=== PATIENT | female | born 1995 | race Hispanic/Latino ===

== ENCOUNTER 2021-05-10 22:40 | Inpatient (IN) | payer OTHER ==
[~2021-05-10] VITALS: Ht 162.6 cm; Wt 70.1 kg
[2021-05-11 01:07] LABS: HEMATOCRIT 42.4 % (36.0-47.0); HEMOGLOBIN 13.8 g/dl (12.0-15.5); MEAN CORPUSCULAR HEMOGLOBIN 29.3 pg (27.0-33.0); MEAN CORPUSCULAR HGB CONC 32.5 g/dl (32.0-36.5); PLATELET COUNT, AUTOMATED 196 10^3/uL (150-450); RED BLOOD COUNT 4.71 10^6/uL (4.00-5.40); WHITE BLOOD COUNT 8.6 10^3/uL (4.0-10.0)
[2021-05-11 01:26] LABS: AMPHETAMINES LEVEL URINE NEGATIVE (NEGATIVE); BARBITURATES URINE NEGATIVE (NEGATIVE); BENZODIAZEPINES URINE NEGATIVE (NEGATIVE); CANNABINOIDS URINE NEGATIVE (NEGATIVE); COCAINE METABOLITE URINE NEGATIVE (NEGATIVE); METHADONE URINE NEGATIVE (NEGATIVE); OPIATES URINE NEGATIVE (NEGATIVE); PHENCYCLIDINE URINE NEGATIVE (NEGATIVE)
[2021-05-11 01:45] LABS: ACETAMINOPHEN LEVEL < 2.0 UG/ML (10.0-30.0); ALBUMIN 4.2 GM/DL (3.2-5.2); ALT/SGPT 24 U/L (12-78); BILIRUBIN,DIRECT 0.3 MG/DL (0.0-0.2); BILIRUBIN,TOTAL 1.2 MG/DL (0.2-1.0); BLOOD UREA NITROGEN 11 MG/DL (7-18); CALCIUM LEVEL 9.3 MG/DL (8.5-10.1); CARBON DIOXIDE LEVEL 24 MEQ/L (21-32); CHLORIDE LEVEL 106 MEQ/L (98-107); CREATININE FOR GFR 0.78 MG/DL (0.55-1.30); ETHYL ALCOHOL (ETHANOL) < 0.003 % (0.000-0.010); GLOMERULAR FILTRATION RATE > 60.0 (>60); GLUCOSE, FASTING 95 MG/DL (70-100); POTASSIUM SERUM 3.8 MEQ/L (3.5-5.1); SALICYLATE LEVEL < 1.7 MG/DL (5.0-30.0); SODIUM LEVEL 140 MEQ/L (136-145); TOTAL PROTEIN 8.2 GM/DL (6.4-8.2)
[2021-05-11 01:46] LABS: HCG, SERUM QUALITATIVE NEGATIVE (NEGATIVE)
[2021-05-11 01:56] LABS: RSV AMPLIFICATION NEGATIVE (NEGATIVE)
[2021-05-11] MEDS ORDERED: HOME MED LIST COMPLETE! XX SCH (02:15)
[2021-05-11] MEDS ORDERED: MOM 30ML SUSPENSION UDC PO PRN (02:20)
[2021-05-11] MEDS ORDERED: ACETAMINOPHEN TAB 650MG DOSE (2X325MG) PO PRN (02:20)
[2021-05-11] MEDS ORDERED: traZODone 50 MG TAB PO PRN (02:20)
[2021-05-11] MEDS ORDERED: MAALOX 30 ML SUSP *UDC PO PRN (02:20)
[2021-05-11] MEDS ORDERED: LORazepam 1 MG TAB PO PRN (02:20)
[2021-05-11 03:01] VITALS: BP 117/72
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
[2021-05-11 19:18] VITALS: BP 118/75
[2021-05-12 06:45] VITALS: BP 121/63
--- NOTE | 2021-05-12 16:13 | HPEPDOC ---
[facility] Medical History & Physical Date of Admission May 11, 2021 Date of Service: May 12, 2021 History and Physical Chief complaint: Presented to the ER with suicidal ideation History of present illness: Patient is 25-year-old female with no significant past medical history presented to the hospital after reporting suicidal ideation. Patient admitted to the inpatient mental health unit under the care of psychiatry. Hospitalist service was consulted for medical screening evaluation. Patient was seen and examined in the exam room. Patient reports a mild headache that shes experienced chronically report some nausea without vomiting. Denies any chest pain, shortness of breath or palpitations. Has not experience any abdominal discomfort, diarrhea, constipation, or urinary discomfort. Patient denies any recent fevers or chills. Patient reports her weight or appetite are fairly consistent. 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 Review of Systems: 10 point review of systems complete, all negative otherwise stated in HPI Physical exam: - Vitals: BP [121/63], HR [53], RR [16], Sat [100%RA], Temp [97.5F] - General: Sitting up in chair, Speaking in full sentences, AAOx3 - HEENT: NC, AT, PERRLA - CVS: RRR, +S1S2 - Lungs: Fair air entry bilaterally, No appreciable wheezing / rales / rhonchi - Abdomen: Soft, Non-distended, Non-tender - Extremities: No lower extremity edema, No calf tenderness - Neuro: No focal motor or sensory deficit - Skin: No visible rashes Labs: See below Imaging: See below EKG: See below Assessment and Plan: Suicidal ideation - Patient has been admitted to inpatient health unit under the care of psychiatry - Currently being managed by psychiatry Hx of Concussion - Reported 7 weeks ago DVT prophylaxis - Will c/w early ambulation Female sex offender treatment professional was present at the duration of this history and physical examination Thank you for this consultation. Hospitalist service will sign off; please reconsult as needed. Vital Signs Vital Signs Date Time Temp Pulse Resp B/P (MAP) Pulse Ox O2 Delivery O2 Flow Rate FiO2 05/12/21 06:45 97.5 53 16 121/63 (82) 100 Room Air Home Medications No Active Prescriptions or Reported Meds Allergies Coded Allergies: No Known Allergies (Unverified , 05/10/21) CODI PARKER MD May 12, 2021 16:13
[2021-05-12 18:41] VITALS: BP 120/58
[2021-05-13 06:47] VITALS: BP 112/61
--- NOTE | 2021-05-13 11:06 | MHIPN ---
[facility] PROGRESS NOTE DATE: 05/12/2021 SUBJECTIVE: The patient states that she is feeling better today. She says that the fact that she got some sleep is helping her feel better and she is not having any suicidal thoughts or any thoughts of harming herself today. MENTAL STATUS EXAMINATION: She is alert. She is oriented, verbally spontaneous. She is not suicidal or homicidal. Concentration and memory is good. Insight and judgment is fair. DIAGNOSES: 1. Unspecified trauma and stress-related disorder. 2. Unspecified depressive disorder secondary to traumatic brain injury. 3. Generalized anxiety disorder with panic attacks. TREATMENT PLAN: At this point, we will continue to monitor the patient. We will continue stabilization of her mood and continued resolution of suicidal ideation.
[2021-05-13 18:22] VITALS: BP 120/65
--- NOTE | 2021-05-14 06:02 | MHIPN ---
[facility] PROGRESS NOTE DATE: 05/13/2021 SUBJECTIVE: The patient today states "I am doing better." She says that she is eating well and her sleep is better now. She does not feel depressed. She says she is having some weird dreams but not nightmares. Patient has not been treated with any psychotropic medications. These cannot be side-effects from medication. MENTAL STATUS EXAM: The patient is alert and oriented x3. She is pleasant and cooperative, verbally spontaneous. Eye contact is good. There is no formal thought disorder noted. Mood is "better." Affect is full range and appropriate. She is not psychotic, suicidal or homicidal. Concentration and memory are good. Insight and judgment are fair. DIAGNOSIS: 1. Unspecified trauma and stressor related disorder. 2. Other specified depressive disorder. 3. Generalized anxiety disorder with panic attacks. TREATMENT PLAN: At this point, we will continue to monitor the patient for continued observation and stabilization of her mood and continued resolution of suicidal ideation.
[2021-05-14 06:41] VITALS: BP 111/60
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
== END 2021-05-14 13:30 | disposition home or self-care (01) | DRG 882 ==
LOC: M ED 22:40 → M PSY 05-11 02:20
PROVIDERS: ADMIT Psychiatry & Neurology Psychiatry; ATTEND Psychiatry & Neurology Psychiatry
DX: F43.11 Post-traumatic stress disorder, acute (principal); R45.851 Suicidal ideations; F41.1 Generalized anxiety disorder

== ENCOUNTER 2021-05-22 22:54 | Inpatient (IN) | payer OTHER ==
--- OUTSIDE RECORDS SUMMARY | 2021-05-22 22:58 | CCD ---
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 abrasion, 2 Clinical Report - Physicians/Mid Levels [facility] Emergency Department [address] [place] [address] Phone #: ext- [phone] 03/23/2021 08:37 Patient: MONTSERRAT VIERA [facility]#: [id number] Sex: F : 1995 Age: 25y ecchymosis, puncture wound or foreign body. No deformity. Left gnosticism: mild tenderness of the anterior aspect of the left gnosticism. No erythema, swelling, laceration, abrasion or ecchymosis. No puncture wound, foreign body or deformity. Eyes: Pupils equal, round and reactive to light. EOM intact. ENT: No dental injury. Pharynx normal. Neck: Neck non-tender. Painless ROM. CVS: Heart sounds normal. Pulses normal. Respiratory: Painless inspiration. Breath sounds normal. Chest nontender. Abdomen: Soft and nontender. No organomegaly. Back: No tenderness. ROM normal. Skin: Skin intact. Skin warm and dry. Normal skin color. Extremities: Normal inspection. Pelvis stable. Extremities atraumatic. No lower extremity edema. Neuro: Oriented X 3. Mood/affect normal. Speech normal. No motor deficit. Abnormal gait. No sensory deficit. Reflexes normal.LABS, X-RAYS, AND EKGCT Head: Normal study. (.). Prior studies were not available for comparison. The study was interpretedby the radiologist. Interpretation time: 11:12 03/23/2021.PROGRESS AND PROCEDURESCourse of Care: 11:24 03/23/21. 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 she has a few second LOC and has been dizzy and nauseated in theER, given zofran in the ER. CT scan of the head was negative for bleed or fracture. she was advisedfollow up with MOD and to follow concussion protocol. she was prescribed zofran for nausea. Patient counseled in person regarding the patient's stable condition and need for follow-up. Patient agrees with plan of care. 11:20. Disposition: Discharged in good and improved condition (11:21). Condition: good and stable. Discharge decision based on the following: patient's condition is stable; patient's exam is stable; minimally abnormal test results; stable condition on repeat evaluation; social support is adequate; transportation is available; follow-up is available; clinical impression is consistent with outpatient treatment.CLINICAL IMPRESSION Concussion. Loss of consciousness for a few seconds.INSTRUCTIONS Do not work for seven days. (we did a CT scan o f the head which was negative for bleed or fracture. you may have a mild concussion. you should follow up with your medical command and should have graduated activity for 1 3 Clinical Report - Physicians/Mid Levels [facility] Emergency Department [address] [place] [address] Phone #: ext- [phone] 03/23/2021 08:37 Patient: MONTSERRAT VIERA Sex: F : 1995 Age: 25y week). Your Current Medications: . No home medication. Prescription Medications: ondansetron 4 mg disintegrating tablet Take 1 tablet three times a day as needed for 5 days -- for nausea and vomiting. Dispense 15 tablet. Refills: 0. Substitution permitted. Pharmacy - [facility] [id number] ; [place] [address]. FaxNumber: . Follow-up: Follow up with your healthcare provider unit provider and follow concussion protocol today. Summary of care provided to patient via paper.(Electronically signed by Neha Damian 03/24/2021 01:52) Name Value Range Interpretation Code Description Data Rocio rce(s) Supporting Document(s) ID Date Data Source [id number] 02/12/2021 09:46:00 AM EDT [facility] Name Value Range Interpretation Code Description Data Rocio rce(s) Supporting Document(s) SARS coronavirus 2 RNA Not Detected [facility] This lab was ordered by [facility] and reported by [facility]. Procedure Social History No Information
[2021-05-22 23:51] LABS: AMPHETAMINES LEVEL URINE NEGATIVE (NEGATIVE); BARBITURATES URINE NEGATIVE (NEGATIVE); BENZODIAZEPINES URINE NEGATIVE (NEGATIVE); CANNABINOIDS URINE NEGATIVE (NEGATIVE); COCAINE METABOLITE URINE NEGATIVE (NEGATIVE); METHADONE URINE NEGATIVE (NEGATIVE); OPIATES URINE NEGATIVE (NEGATIVE); PHENCYCLIDINE URINE NEGATIVE (NEGATIVE)
[2021-05-22 23:59] LABS: HEMATOCRIT 40.4 % (36.0-47.0); HEMOGLOBIN 13.5 g/dl (12.0-15.5); MEAN CORPUSCULAR HEMOGLOBIN 29.8 pg (27.0-33.0); MEAN CORPUSCULAR HGB CONC 33.4 g/dl (32.0-36.5); MEAN CORPUSCULAR VOLUME 89.2 fl (80.0-96.0); PLATELET COUNT, AUTOMATED 207 10^3/uL (150-450); RED BLOOD COUNT 4.53 10^6/uL (4.00-5.40); WHITE BLOOD COUNT 9.7 10^3/uL (4.0-10.0)
[2021-05-23 00:16] LABS: HCG, SERUM QUALITATIVE NEGATIVE (NEGATIVE)
[2021-05-23 00:24] LABS: ACETAMINOPHEN LEVEL < 2.0 UG/ML (10.0-30.0); ALBUMIN 3.9 GM/DL (3.2-5.2); ALT/SGPT 21 U/L (12-78); BILIRUBIN,DIRECT 0.2 MG/DL (0.0-0.2); BILIRUBIN,TOTAL 1.2 MG/DL (0.2-1.0); BLOOD UREA NITROGEN 9 MG/DL (7-18); CALCIUM LEVEL 8.9 MG/DL (8.5-10.1); CARBON DIOXIDE LEVEL 26 MEQ/L (21-32); CHLORIDE LEVEL 109 MEQ/L (98-107); CREATININE FOR GFR 0.69 MG/DL (0.55-1.30); ETHYL ALCOHOL (ETHANOL) < 0.003 % (0.000-0.010); GLOMERULAR FILTRATION RATE > 60.0 (>60); GLUCOSE, FASTING 93 MG/DL (70-100); POTASSIUM SERUM 4.2 MEQ/L (3.5-5.1); SALICYLATE LEVEL < 1.7 MG/DL (5.0-30.0); SODIUM LEVEL 140 MEQ/L (136-145); THYROID STIMULATING HORMONE 0.892 uIU/ML (0.358-3.740); TOTAL PROTEIN 7.9 GM/DL (6.4-8.2)
--- OUTSIDE RECORDS SUMMARY | 2021-05-23 01:13 | CCD ---
Author Author [facility] Organization [facility] Address Unknown Phone Unavailable Care Team Providers Care Platform Material Handler Manager Name Role Phone UNKNOWN, CLINIC OKSANA Unavailable Unavailable TURRIN, RAJIV Unavailable Unavailable TURRIN, RAJIV Unavailable Unavailable TURRIN, RAJIV Unavailable Unavailable TURRIN, [...] is protected by Article 27-F of the [place] State Public Health law. If you continue you may have access to information: Regarding HIV / AIDS; Provided by facilities licensed or operated by the [facility] Office of Mental Health; or Provided by the [facility] Office for People With Developmental Disabilities. If such information is present, then the following [facility] mandated warning applies: This information has been [...] law may result in a fine or mcc sentence or both. A general authorization for the release of medical or other information is NOT sufficient authorization for further disc losure. Encounters Encounter Providers Location Date Indications Data Source(s ) Emergency Attender: RAJIV WINNConsultant: OKSANA UNKN OWN 04/09/2021 10:09:00 AM EDT - 04/09/2021 11:03:00 AM EDT [facility] Patient discharged. Emergency Attender: NEHA DAMIAN MDConsultant: ILA OR UNKNOWN 03/23/2021 08:38:00 AM EDT - 03/23/2021 11:29:00 AM T [facility] Patient discharged. Medications No Information Insurance Providers Payer name Policy type / Coverage type Policy ID Covered republican ID Covered republican's relationship to pascal Policy Pascal Plan Information [facility] [employer]UTY [id number] SP [id number] [facility] HUMANA - O/P [id number] 18 [id number] Problems, Conditions, and Diagnoses Code Display Name Description Problem Type Effective Dates Data Source(s) Y9289 Other specified places as the place of o ccurrence of the external cause Other specified places as the place of occurrence of the external cause Diagnosis 04/09/2021 10:09:00 AM [facility] [id number] Striking against other stationary object , initial encounter Striking against other stationary object, initial encounter Diagnosis 10/2020 10:09:00 AM [facility] F0781 Postconcussional syndrome Postconcussional syndrome Di agnosis 04/09/2021 10:09:00 AM [facility] [id number] Concussion with loss of cons ciousness of unspecified duration, initial encounter Concussion with loss of consciousness of unspecified duration, initial encounter Diagnosis 04/09/2021 10:09:00 AM EDT [facility] [id number] Unspecified injury of head, initial enco unter Unspecified injury of head, initial encounter Diagnosis 04/09/2021 10:09:00 AM EDT [facility] [id number] Fall on same level from slip ping, tripping and stumbling with subsequent striking against other object, initial encounter Fall on same level from slipping, tripping and stumbling with subsequent striking against other object, initial encounter Diagnosis 03/23/2021 08:38:00 AM EDT [facility] [id number] Concussion with loss of cons ciousness of 30 minutes or less, initial encounter Concussion with loss of consciousness of 30 minutes or less, initial encounter Diagnosis 03/23/2021 08:38:00 AM EDT [facility] Surgeries/Procedures No Information Results ID Date Data Source [id number] 05/11/2021 12:38:00 AM EDT [facility] Name Value Range Interpretation Code Description Data Rocio rce(s) Supporting Document(s) SARS coronavirus 2 RNA [Presence] in Res piratory specimen by ARCHIE with probe detection [facility] was ordered by [facility] a nd reported by [facility]. ID Date Data Source [id number] 04/30/2021 09:37:00 AM EDT [facility] Name Value Range Interpretation Code Description Data Rocio rce(s) Supporting Document(s) SARS coronavirus 2 RNA Not Detected [facility] This lab was ordered by [facility] and reported by [facility]. ID Date Data Source [id number] 04/09/2021 10:09:00 AM EDT [facility] 1 OrderSheet [facility] Emergency Department [address] [place] [address] Phone #: ext- [phone] 04/09/2021 10:05 Patient: MONTSERRAT VIERA Sex: F [...] rce(s) Supporting Document(s) ID Date Data Source [id number] 04/09/2021 10:09:00 AM EDT [facility] 1 Medication Reconciliation Report [facility] Emergency Department [address] [place] [address] Phone #: ext- [phone] 04/09/2021 10:05 Patient: [...] rce(s) Supporting Document(s) ID Date Data Source [id number] 04/09/2021 10:09:00 AM EDT [facility] 1 Medication Administration Record [facility] Emergency Department [address] [place] [address] Phone #: ext- [phone] 04/09/2021 10:05 Patient: [...] rce(s) Supporting Document(s) ID Date Data Source [id number] 04/09/2021 10:09:00 AM EDT [facility] 1 General Instructions [facility] Emergency Department [address] [place] [address] Phone #: ext- [phone] 04/09/2021 10:05 Patient: [...] medication.Follow-up:Follow up with doctor [facility] Clinic at [facility] as scheduled. Reason for referral: evaluation and treatment.Summary of care provided to patient.Understanding of the discharge instructions verbalized by patient. ADDITIONAL INFORMATIONConcussion 2 General Instructions [facility] Emergency Department [address] [place] [address] Phone #: ext- [phone] 04/09/2021 10:05 Patient: [...] bag that seals at 3 General Instructions [facility] Emergency Department [address] [place] [address] Phone #: ext- [phone] 04/09/2021 10:05 Patient: [...] worse Loss of consciousness 4 General Instructions [facility] Emergency Department [address] [place] [address] Phone #: ext- [phone] 04/09/2021 10:05 [id number] Sex: F : 1995 Age: 25y Unusual [...] or bleeding from the nose or ears [id number] [employer]. [address] [place] [address]. All rights reserved. This information is not [...] things. This is normal. 5 General Instructions [facility] Emergency Department [address] [place] [address] Phone #: ext- [phone] 04/09/2021 10:05 Patient: [facility]ER[facility] [id number] Sex: F : 1995 Age: 25y Symptoms [...] week, or as directed. 6 General Instructions [facility] Emergency Department [address] [place] [address] Phone #: ext- [phone] 04/09/2021 10:05 Patient: [facility]ERRAT [facility]ER[facility] [id number] Sex: F : 1995 Age: 25yA radiologist [...] bleeding from the nose or ears [employer]. [address] [place], [place] [address]. All rights reserved. This information is not intended as asubstitute for professional medical care. Always follow your healthcare professional's instructions. You have been given the following additional information: Concussion Concussion No strenuous activity until relea sed (until evaluated at the TBI Clinic). 7 General Instructions [facility] Emergency Department [address] [place] [address] Phone #: ext- [phone] 04/09/2021 10:05 Patient: MONTSERRAT VIERA Sex: F : 1995 Age: 25y(Electronically signed by SAMIA Avelar 04/09/2021 21:30) Name Value Range Interpretation Code Description Data Rocio rce(s) Supporting Document(s) ID Date Data Source [id number] 04/09/2021 10:09:00 AM EDT [facility] 1 Clinical Report - Nurses [facility] Emergency Department [address] [place] [address] Phone #: ext- [phone] 04/09/2021 10:05 Patient: [...] INJURY.Alert. No acute distress.Location of injuries: left quaker and left parietal area. ( injury 3 weeks ago). She has had a headache(left side).Treatment BOND WRITER:None.SEPSIS SCREEN: SIRS SCREEN NEGATIVE. SEPSIS SCREEN NEGATIVE. [...] to Coronavirus. 2 Clinical Report - Nurses [facility] Emergency Department [address] [place] [address] Phone #: ext- [phone] 04/09/2021 10:05 Patient: MONTSERRAT VIERA [facility]#: [id number] Sex: F : 1995 Age: 25y (vaccinated [...] reaction and 3 Clinical Report - Nurses [facility] Emergency Department [address] [place] [address] Phone #: ext- [phone] 04/09/2021 10:05 Patient: MONTSERRAT VIERA Sex: F : 1995 Age: 25y precautions. Verbalizes understanding. --10:51 04/09/21 Keisha Barnett R.N.DISPOSITION / DISCHARGE 10:55 04/09/21. BP: 131/78. HR: 63. RR: 17. O2 saturation: 100%. Temp: 98.7 F. Pain level now 2/10. --10:56 04/09/21 [facility] Tech, Alf, Tech1 Condition at departure: improved. No learning barriers pr esent. Work note given. Patient verbalized understanding. Written instructions provided in Bermudian. The patient was discharged home and unaccompanied at time of discharge. She left ambulatory and via private vehicle. Patient driving. --11:03 04/09/21 Keisha Barnett R.N. Departure time: 11:03 04/09/2021. --11:03 04/09/21 Keisha Barnett R.N.Locked/Released at 04/09/2021 11:03 by Keisha Barnett R.N. Name Value Range Interpretation Code Description Data Rocio e(s) Supporting Document(s) ID Date Data Source [id number] 04/09/2021 10:09:00 AM EDT [facility] 1 Clinical Report - Physicians/Mid Levels [facility] Emergency Department [address] [place] [address] Phone #: ext- [phone] 04/09/2021 10:05 Patient: [...] re-scheduled her 2 Clinical Report - Physicians/Mid [facility] Emergency Department [address] [place] [address] Phone #: ext- [phone] 04/09/2021 10:05 Patient: MONTSERRAT VIERA Sex: F : 1995 Age: 25y appointment, she cam here instead. Pt needs to follow up at [facility]). Patient counseled in person regarding the patient's [...] Follow up with doctor TBI Clinic at [facility] as scheduled. Reason for referral: evaluation and treatment. Summary of care provided to patient. Understanding of the discharge instructions verbalized by patient.(Electronically signed by SAMIA Avelar 04/09/2021 21:30) Name Value Range Interpretation Code Description Data Rocio rce(s) Supporting Document(s) ID Date Data Source [id number] 03/24/2021 10:58:00 PM EDT [facility] [address] [place] [address] PHONE: [phone] FAX: [phone] Name .................. : MAXIMILIANO MARIANO Acct Number.................. : [id number] ROOM. ................. : TR-08 MR Number ................... : [id number] Stay type ............. : E/R Discharge Date......... ... : 03/23/21 Admit Date ......... : 03/23/21 [facility].... [facility] Date of ....... : 1995 Family Phys ................... : UNKNOWN CO Phone .................. : [phone] Age ................................ : 25 Film# .................. .:[id number] Sex ................................. : F Unsigned transcriptions are preliminary reports and do not represent a medical or legal document CT HEAD W/O CONTRAST [id number] COMPLETE:03/23/21 11:44 [facility] [id number] Reason(s): ead injury with LOC CT BRAIN [...] MD , 03/24/21 22:58, SCB Transcribe Initials: [facility], Transcribe Date: 03/23/21 12:08, Dictation Date: Page 1 of 2 [place] [address] PHONE: [phone] FAX: [phone] Name .................. : MAXIMILIANO MARIANO Acct Number.................. : [id number] ROOM. ................. : TR-08 MR Number ................... : [id number] Stay type ............. : E/R Discharge Date......... ... : 03/23/21 Admit Date ......... : 03/23/21 Admit Phys .................... : YAHIR Date of ....... : 1995 Family Phys ................... : UNKNOWN CO Phone .................. : [phone] Age ................................ : 25 Film# .................. .:[id number] Sex ................................. : F Unsigned transcriptions are preliminary reports and do not represent a medical or legal document CT HEAD W/O CONTRAST [id number] COMPLETE:03/23/21 11:44 [facility] [address] Reason(s): ead injury with LOC Copy for: EMERGENCY DEPT via modem Copy for: 710 MED REC DISCHARGED Page 2 of 2 Name Value Range Interpretation Code Description Data Rocio rce(s) Supporting Document(s) ID Date Data Source [id number] 03/23/2021 08:38:00 AM EDT [facility] 1 OrderSheet [facility] Emergency Department [address] [place] [address] Phone #: iso- [phone] 03/23/2021 08:37 Patient: MONTSERRAT VIERA Sex: F [...] Priority Entered Acknowledged Initialed[Electronically signed by Antoinette Prakinson RN (11:32 03/23/2021)][Electronically signed by Neha Damian (01:52 03/24/2021)][Electronically locked by Antoinette Parkinson RN (11:32 03/23/2021)] Name Value Range Interpretation Code Description Data Rocio rce(s) Supporting Document(s) ID Date Data Source [id number] 03/23/2021 08:38:00 AM EDT [facility] 1 Medication Reconciliation Report [facility] Emergency Department [address] [place] [address] Phone #: ext- [phone] 03/23/2021 08:37 Patient: [...] 15 tablet. Refills: 0. Substitution permitted.Pharmacy - [facility] - [address] [facility] ; [place] [address]. . -- Neha Damian Name Value Range Interpretation Code Description Data Rocio e(s) Supporting Document(s) ID Date Data Source [id number] 03/23/2021 08:38:00 AM EDT [place] [address] Medication Administration Record [facility] Emergency Department [address] [place] [address] Phone #: ext- [phone] 03/23/2021 08:37 Patient: MONTSERRAT VIERA Sex: F [...] e(s) Supporting Document(s) ID Date Data Source [id number] 03/23/2021 08:38:00 AM EDT [place] [address] General Instructions [facility] Emergency Department [address] [place] [address] Phone #: ext [phone] 03/23/2021 08:37 Patient: MONTSERRAT VIERA Sex: F [...] 15 tablet. Refills: 0. Substitution permitted.Pharmacy - [address] ; [place] [address]. .Follow-up:Follow up with your healthcare provider unit provider and follow concussion protocol today. Summary ofcare provided to patient via paper. ADDITIONAL INFORMATIONConcussion 2 General Instructions [facility] Emergency Department [address] [place] [address] Phone #: ext- [phone] 03/23/2021 08:37 Patient: MONTSERRAT VIERA Sex: F [...] bag that seals at 3 General Instructions [facility] Emergency Department [address] [place] [address] Phone #: ext- [phone] 03/23/2021 08:37 Patient: MONTSERRAT VIERA [facility] [id number] Sex: F : 1995 Age: 25y the [...] worse Loss of consciousness 4 General Instructions [facility] Emergency Department [address] [place] [address] Phone #: ext- [phone] 03/23/2021 08:37 Patient: [...] bleeding from the nose or ears [employer]. [address] [place] [address], [place] [address]. All rights reserved. This information is not intended as asubstitute for professional medical care. Always follow your healthcare professional's instructions. You have been given the following additional information: Concussion Do not work for seven days.(Electronically signed by Neha Damian 03/24/2021 01:52) Name Value Range Interpretation Code Description Data Rocio rce(s) Supporting Document(s) ID Date Data Source [id number] 03/23/2021 08:38:00 AM EDT [facility] 1 Clinical Report - Nurses [facility] Emergency Department [address] [place] [address] Phone #: ext- [phone] 03/23/2021 08:37 Patient: MONTSERRAT VIERA Sex: F : 1995 Age: 25yTRIAGEArrived by EMS, and (Susie Eldridge). Historian: EMS.Triage time: 08:38 03/23/2021. Acuity: LEVEL 3.Chief Complaint: INJURY TO HEAD.08:38 03/23/21. Alert. 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 Fell:EMS Treatment BOND WRITER:EMS treatment verbally communicated and see EMS report. [...] Antoinette Parkinson RN.PROBLEMS:no known problems.ADDITIONAL SURGERIES:no known surgeries.Jxrfgoh49:38 03/23/21.PAST MEDICAL HX: Tetanus status: up-to-date. Immunizations: up-to-date. Last normal menstrualperiod- Feb 27. Denies current . 2 Clinical Report - Nurses [facility] Emergency Department [address] [place] [address] Phone #: ext- [phone] 03/23/2021 08:37 Patient: MONTSERRAT VIERA Sex: F [...] with saline. --08:39 03/23/21 Antoinette Parkinson RN.PHYSICAL ALEJZKAANF19:43 03/23/21. To room via stretcher.GENERAL / NEURO / PSYCH: Alert. Oriented X 4. Appears in no acute distress.HEENT: Head: tenderness present in the left temporal area and parietal area. Left quaker: tenderness.Photophobia present. Pupils equal, round and reactive to light. EOM intact. Mouth within normal limitsupon inspection. Voice within normal limits. No swelling of head. No nasal injury noted. No dentalinjury noted. Mucous membranes are pink.RESPIRATORY: Respirations not labored.CVS: Capillary refill less than 2 seconds.EXTREMITIES: Left shoulder: tenderness located in the posterior aspect of the shoulder. 3 Clinical Report - Nurses [facility] Emergency Department [address] [place] [address], [place] [address] Phone #: ire- [phone] 03/23/2021 08:37 Patient: MONTSERRAT VIERA Sex: F [...] Patient verbalized understanding. Written instructions provided in Bermudian. The patient was discharged home and accompanied by international sales manager. She left ambulatory and via private vehicle. Washroom Cleaner driving. --11:30 03/23/21 Antoinette Parkinson RN 4 Clinical Report - Nurses [facility] Emergency Department [address] [place] [address] Phone #: ext- [phone] 03/23/2021 08:37 Patient: MONTSERRAT VIERA Sex: F : 1995 Age: 25y 11:28 03/23/21. BP: 101/52. MAP: 68. HR: 52. RR: 14. O2 saturation: 100%. Temp: 98.6 F. Pain level now: 0/10. --11:30 03/23/21 Antoinette Parkinson RN.Locked/Released at 03/23/2021 11:32 by Antoinette Parkinson RN Name Value Range Interpretation Code Description Data Rocio rce(s) Supporting Document(s) ID Date Data Source [id number] 03/23/2021 08:38:00 AM EDT [facility] 1 Clinical Report - Physicians/Mid Levels [facility] Emergency Department [address] [place] [address] Phone #: ext- [phone] 03/23/2021 08:37 Patient: [...] abrasion, 2 Clinical Report - Physicians/Mid Levels [facility] Emergency Department [address] [place] [address] Phone #: ext- [phone] 03/23/2021 08:37 Patient: MONTSERRAT VIERA [facility]#: [id number] Sex: F : 1995 Age: 25y ecchymosis, puncture wound or foreign body. No deformity. Left quaker: mild tenderness of the anterior aspect of the left quaker. No erythema, swelling, laceration, abrasion or ecchymosis. [...] 1 3 Clinical Report - Physicians/Mid Levels [facility] Emergency Department [address] [place] [address] Phone #: ext- [phone] 03/23/2021 08:37 Patient: MONTSERRAT VIERA Sex: F : 1995 Age: 25y week). Your Current Medications: . No home medication. Prescription Medications: ondansetron 4 mg disintegrating tablet Take 1 tablet three times a day as needed for 5 days -- for nausea and vomiting. Dispense 15 tablet. Refills: 0. Substitution permitted. Pharmacy - [facility] [address] [facility] ; [place] [address]. FaxNumber: . Follow-up: Follow up with your healthcare provider unit provider and follow concussion protocol today. Summary of care provided to patient via paper.(Electronically signed by Neha Damian 03/24/2021 01:52) Name Value Range Interpretation Code Description Data Rocio rce(s) Supporting Document(s) ID Date Data Source [id number] 02/12/2021 09:46:00 AM EDT [facility] Name Value Range Interpretation Code Description Data Rocio rce(s) Supporting Document(s) SARS coronavirus 2 RNA Not Detected [facility] This lab was ordered by [facility] and reported by [facility]. Procedure Social History No Information
[2021-05-23 02:30] LABS: RSV AMPLIFICATION NEGATIVE (NEGATIVE)
[2021-05-23] MEDS ORDERED: traZODone 50 MG TAB PO PRN (04:45)
[2021-05-23] MEDS ORDERED: MOM 30ML SUSPENSION UDC PO PRN (04:45)
[2021-05-23] MEDS ORDERED: ACETAMINOPHEN TAB 650MG DOSE (2X325MG) PO PRN (04:45)
[2021-05-23] MEDS ORDERED: MAALOX 30 ML SUSP *UDC PO PRN (04:45)
[2021-05-23] MEDS ORDERED: LORazepam 1 MG TAB PO PRN (04:45)
--- OUTSIDE RECORDS SUMMARY | 2021-05-23 05:33 | CCD ---
Author Author [facility] Organization [facility] Address Unknown Phone Unavailable Care Team Providers Care Clinical Unit Educator Name Role Phone UNKNOWN, CLINIC OKSANA Unavailable [...] is protected by Article 27-F of the [place] State Public Health law. If you continue you may have access to information: Regarding HIV / AIDS; Provided by facilities licensed or operated by the [facility] Office of Mental Health; or Provided by the [facility] Office for People With Developmental Disabilities. If such information is present, then the following [facility] mandated warning applies: This information has [...] law may result in a fine or prison sentence or both. A general authorization for the release of medical or other information is NOT sufficient authorization for further disc losure. Encounters Encounter Providers Location Date Indications Data Source(s ) Emergency Attender: RAJIV WINNConsultant: OKSANA UNKN OWN 04/09/2021 10:09:00 AM EDT - 04/09/2021 11:03:00 AM EDT [facility] Patient discharged. Emergency Attender: NEHA DAMIAN MDConsultant: ILA OR UNKNOWN 03/23/2021 08:38:00 AM EDT - 03/23/2021 11:29:00 AM T [facility] Patient discharged. Medications No Information Insurance Providers Payer name Policy type / Coverage type Policy ID Covered alliance party ID Covered alliance party's relationship to pascal Policy Pascal Plan Information [facility] [employer] [id number] SP [id number] [facility] HUMANA - O/P [id number] 18 [id number] Problems, Conditions, and Diagnoses Code Display Name Description Problem Type Effective Dates Data Source(s) Y9289 Other specified places as the place of o ccurrence of the external cause Other specified places as the place of occurrence of the external cause Diagnosis 04/09/2021 10:09:00 AM [facility] [id number] Striking against other stationary object , initial encounter Striking against other stationary object, initial encounter Diagnosis 10/2020 10:09:00 AM [facility] [id number] Postconcussional syndrome Postconcussional syndrome Di agnosis 04/09/2021 10:09:00 AM [facility] [id number] Concussion with loss of cons ciousness of unspecified duration, initial encounter Concussion with loss of consciousness of unspecified duration, initial encounter Diagnosis 04/09/2021 10:09:00 AM EDT [facility] [id number] Unspecified injury of head, initial enco unter Unspecified injury of head, initial encounter Diagnosis 04/09/2021 10:09:00 AM EDT [facility] [id number] Fall on same level from slip ping, tripping and stumbling with subsequent striking against other object, initial encounter Fall on same level from slipping, tripping and stumbling with subsequent striking against other object, initial encounter Diagnosis 03/23/2021 08:38:00 AM EDT [facility] [id number] Concussion with loss of cons ciousness of 30 minutes or less, initial encounter Concussion with loss of consciousness of 30 minutes or less, initial encounter Diagnosis 03/23/2021 08:38:00 AM EDT [facility] Surgeries/Procedures No Information Results ID Date Data Source [id number] 05/11/2021 12:38:00 AM EDT [facility] Name Value Range Interpretation Code Description Data Rocio rce(s) Supporting Document(s) SARS coronavirus 2 RNA [Presence] in Res piratory specimen by ARCHIE with probe detection NEGATIVE [facility] This lab was ordered by [facility] a nd reported by [facility]. ID Date Data Source [id number] 04/30/2021 09:37:00 AM EDT [facility] Name Value Range Interpretation Code Description Data Rocio rce(s) Supporting Document(s) SARS coronavirus 2 RNA Not Detected [facility] This lab was ordered by [facility] and reported by [facility]. ID Date Data Source [id number] 04/09/2021 10:09:00 AM EDT [facility] 1 OrderSheet [facility] Emergency Department [address] [place] [address] Phone #: ext- [phone] 04/09/2021 10:05 Patient: MONTSERRAT VIERA Sex: F [...] rce(s) Supporting Document(s) ID Date Data Source [id number] 04/09/2021 10:09:00 AM EDT [facility] 1 Medication Reconciliation Report [facility] Emergency Department [address] [place] [address] Phone #: ext- [phone] 04/09/2021 10:05 Patient: [...] rce(s) Supporting Document(s) ID Date Data Source [id number] 04/09/2021 10:09:00 AM EDT [facility] 1 Medication Administration Record [facility] Emergency Department [address] [place] [address] Phone #: ext- [phone] 04/09/2021 10:05 Patient: [...] rce(s) Supporting Document(s) ID Date Data Source [id number] 04/09/2021 10:09:00 AM EDT [facility] 1 General Instructions [facility] Emergency Department [address] [place] [address] Phone #: ext- [phone] 04/09/2021 10:05 Patient: [...] medication.Follow-up:Follow up with doctor TBI Clinic at [facility] as scheduled. Reason for referral: evaluation and treatment.Summary of care provided to patient.Understanding of the discharge instructions verbalized by patient. ADDITIONAL INFORMATIONConcussion 2 General Instructions [facility] Emergency Department [address] [place] [address] Phone #: ext- [phone] 04/09/2021 10:05 Patient: [...] bag that seals at 3 General Instructions [facility] Emergency Department [address] [place] [address] Phone #: ext- [phone] 04/09/2021 10:05 Patient: [...] worse Loss of consciousness 4 General Instructions [facility] Emergency Department [address] [place] [address] Phone #: ext- [phone] 04/09/2021 10:05 [id number] Sex: F : 1995 Age: 25y Unusual [...] or bleeding from the nose or ears [id number] [employer]. [address] [place] [address]. All rights reserved. This information is not [...] things. This is normal. 5 General Instructions [facility] Emergency Department [address] [place] [address] Phone #: ext- [phone] 04/09/2021 10:05 [id number] Sex: F : 1995 Age: 25y Symptoms [...] week, or as directed. 6 General Instructions [facility] Emergency Department [address] [place] [address] Phone #: ext- [phone] 04/09/2021 10:05 Patient: [id number] Sex: F : 1995 Age: 25yA radiologist [...] bleeding from the nose or ears [employer]. [address] [place], [place] [address]. All rights reserved. This information is not intended as asubstitute for professional medical care. Always follow your healthcare professional's instructions. You have been given the following additional information: Concussion Concussion No strenuous activity until relea sed (until evaluated at the TBI Clinic). 7 General Instructions [facility] Emergency Department [address] [place] [address] Phone #: ext- [phone] 04/09/2021 10:05 Patient: MONTSERRAT VIERA Sex: F : 1995 Age: 25y(Electronically signed by SAMIA Avelar 04/09/2021 21:30) Name Value Range Interpretation Code Description Data Rocio rce(s) Supporting Document(s) ID Date Data Source [id number] 04/09/2021 10:09:00 AM EDT [facility] 1 Clinical Report - Nurses [facility] Emergency Department [address] [place] [address] Phone #: ext- [phone] 04/09/2021 10:05 Patient: [...] INJURY.Alert. No acute distress.Location of injuries: left yazidi and left parietal area. ( injury 3 weeks ago). 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 SEPSIS SCREEN NEGATIVE. [...] --10:20 04/09/21 Keisha Barnett R.N.PROBLEMS:Concussion. --10:20 04/09/21 Kiesha Barnett R.N.ADDITIONAL SURGERIES:no known surgeries.HistoryPAST MEDICAL HX: Immunizations: up-to-date. Last normal menstrual period- Mar 27.SOCIAL HX: Never smoker. Occasional alcohol use. No drug use. She was offered HIV testing butdeclined and hepatitis C testing but declined. She has not traveled outside the [place]Infectious disease exposure: No infectious disease exposure. The patient was not exposed to Coronavirus. 2 Clinical Report - Nurses [facility] Emergency Department [address] [place] [address] Phone #: ext- [phone] 04/09/2021 10:05 Patient: MONTSERRAT VIERA [facility]#: [id number] Sex: F : 1995 Age: 25y (vaccinated [...] reaction and 3 Clinical Report - Nurses [facility] Emergency Department [address] [place] [address] Phone #: ext- [phone] 04/09/2021 10:05 Patient: MONTSERRAT VIERA Sex: F : 1995 Age: 25y precautions. Verbalizes understanding. --10:51 04/09/21 Keisha Barnett R.N.DISPOSITION / DISCHARGE 10:55 04/09/21. BP: 131/78. HR: 63. RR: 17. O2 saturation: 100%. Temp: 98.7 F. Pain level now 2/10. --10:56 04/09/21 [facility] access hospital Tech, Alf, Tech1 Condition at departure: improved. No learning barriers pr esent. Work note given. Patient verbalized understanding. Written instructions provided in Bahamian. The patient was discharged home and unaccompanied at time of discharge. She left ambulatory and via private vehicle. Patient driving. --11:03 04/09/21 Keisha Barnett R.N. Departure time: 11:03 04/09/2021. --11:03 04/09/21 Keisha Barnett R.N.Locked/Released at 04/09/2021 11:03 by Keisha Barnett R.N. Name Value Range Interpretation Code Description Data Rocio e(s) Supporting Document(s) ID Date Data Source [id number] 04/09/2021 10:09:00 AM EDT [facility] 1 Clinical Report - Physicians/Mid Levels [facility] Emergency Department [address] [place] [address] Phone #: ext- [phone] 04/09/2021 10:05 Patient: [...] re-scheduled her 2 Clinical Report - Physicians/Mid [facility] Emergency Department [address] [place] [address] Phone #: ext- [phone] 04/09/2021 10:05 Patient: MONTSERRAT VIERA Sex: F : 1995 Age: 25y appointment, she cam here instead. Pt needs to follow up at [facility]). Patient counseled in person regarding the [...] Follow up with doctor TBI Clinic at [facility] as scheduled. Reason for referral: evaluation and treatment. Summary of care provided to patient. Understanding of the discharge instructions verbalized by patient.(Electronically signed by SAMIA Avelar 04/09/2021 21:30) Name Value Range Interpretation Code Description Data Rocio rce(s) Supporting Document(s) ID Date Data Source [id number] 03/24/2021 10:58:00 PM EDT [facility] [address] [place] [address] PHONE: [phone] FAX: [phone] Name .................. : MAXIMILIANO MARIANO Acct Number.................. : [id number] ROOM. ................. : TR-08 MR Number ................... : [id number] Stay type ............. : E/R Discharge Date......... ... : 03/23/21 Admit Date ......... : 03/23/21 [facility] .................... [facility] Date of ....... : 1995 Family Phys ................... : UNKNOWN CO Phone .................. : [phone] Age ................................ : 25 Film# .................. .:[id number] Sex ................................. : F Unsigned transcriptions are preliminary reports and do not represent a medical or legal document CT HEAD W/O CONTRAST 34609 COMPLETE:03/23/21 11:44 [facility]H [id number] Reason(s): ead injury with LOC CT BRAIN [...] MD , 03/24/21 22:58, SCB Transcribe Initials: [facility], Transcribe Date: 03/23/21 12:08, Dictation Date: Page 1 of 2 [place] [address] PHONE: [phone] FAX: [phone] Name .................. : MAXIMILIANO MARIAON Acct Number.................. : [id number] ROOM. ................. : TR-08 MR Number ................... : [id number] Stay type ............. : E/R Discharge Date......... ... : 03/23/21 Admit Date ......... : 03/23/21 Admit Phys .................... : YAHIR Date of ....... : 1995 Family Phys ................... : UNKNOWN CO Phone .................. : [phone] Age ................................ : 25 Film# .................. .:[id number] Sex ................................. : F Unsigned transcriptions are preliminary reports and do not represent a medical or legal document CT HEAD W/O CONTRAST 20420 COMPLETE:03/23/21 11:44 [facility] 10038 Reason(s): ead injury with LOC Copy for: EMERGENCY DEPT via modem Copy for: 710 MED REC DISCHARGED Page 2 of 2 Name Value Range Interpretation Code Description Data Rocio rce(s) Supporting Document(s) ID Date Data Source [id number] 03/23/2021 08:38:00 AM EDT [facility] 1 OrderSheet [facility] Emergency Department [address] [place] [address] Phone #: [phone]- [phone] 03/23/2021 08:37 Patient: MONTSERRAT VIERA Sex: F [...] rce(s) Supporting Document(s) ID Date Data Source [id number] 03/23/2021 08:38:00 AM EDT [facility] 1 Medication Reconciliation Report [facility] Emergency Department [address] [place] [address] Phone #: ext- [phone] 03/23/2021 08:37 Patient: [...] 15 tablet. Refills: 0. Substitution permitted.Pharmacy - [facility] - [address] [facility] ; [place] [address]. . -- Neha Damian Name Value Range Interpretation Code Description Data Rocio e(s) Supporting Document(s) ID Date Data Source [id number] 03/23/2021 08:38:00 AM EDT [place] [address] Medication Administration Record [facility] Emergency Department [address] [place] [address] Phone #: [phone] ext- [phone] 03/23/2021 08:37 Patient: MONTSERRAT VIERA Sex: F [...] e(s) Supporting Document(s) ID Date Data Source [id number] 03/23/2021 08:38:00 AM EDT [place] [address] General Instructions [facility] Emergency Department [address] [place] [address] Phone #: ext [phone] 03/23/2021 08:37 Patient: MONTSERRAT VIERA Sex: F [...] 15 tablet. Refills: 0. Substitution permitted.Pharmacy - [address] ; [place] [address]. .Follow-up:Follow up with your healthcare provider unit provider and follow concussion protocol today. Summary ofcare provided to patient via paper. ADDITIONAL INFORMATIONConcussion 2 General Instructions [facility] Emergency Department [address] [place] [address] Phone #: ext- [phone] 03/23/2021 08:37 Patient: MONTSERRAT VIERA Sex: F [...] bag that seals at 3 General Instructions [facility] Emergency Department [address] [place] [address] Phone #: ext- [phone] 03/23/2021 08:37 [facility]: [id number] Sex: F : 1995 Age: 25y the [...] worse Loss of consciousness 4 General Instructions [facility] Emergency Department [address] [place] [address] Phone #: ext- [phone] 03/23/2021 08:37 Patient: [...] bleeding from the nose or ears [employer]. [address] [place] [address], [place] [address]. All rights reserved. This information is not intended as asubstitute for professional medical care. Always follow your healthcare professional's instructions. You have been given the following additional information: Concussion Do not work for seven days.(Electronically signed by Neha Damian 03/24/2021 01:52) Name Value Range Interpretation Code Description Data Rocio rce(s) Supporting Document(s) ID Date Data Source [id number] 03/23/2021 08:38:00 AM EDT [facility] 1 Clinical Report - Nurses [facility] Emergency Department [address] [place] [address] Phone #: ext- [phone] 03/23/2021 08:37 Patient: MONTSERRAT VIERA Sex: F : 1995 Age: 25yTRIAGEArrived by EMS, and (Susie Eldridge). Historian: EMS.Triage time: 08:38 03/23/2021. Acuity: LEVEL 3.Chief Complaint: INJURY TO HEAD.08:38 03/23/21. Alert. 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 Fell:EMS Treatment [employer] SUPERVISOR:EMS treatment verbally communicated and see EMS report. [...] Antoinette Parkinson RN.PROBLEMS:no known problems.ADDITIONAL SURGERIES:no known surgeries.Ywgdtyd40:38 03/23/21.PAST MEDICAL HX: Tetanus status: up-to-date. Immunizations: up-to-date. Last normal menstrualperiod- Feb 27. Denies current . 2 Clinical Report - Nurses [facility] Emergency Department [address] [place] [address] Phone #: ext- [phone] 03/23/2021 08:37 Patient: MONTSERRAT VIERA Sex: F [...] with saline. --08:39 03/23/21 Antoinette Parkinson RN.PHYSICAL [id number]:43 03/23/21. To room via stretcher.GENERAL / NEURO / PSYCH: Alert. Oriented X 4. Appears in no acute distress.HEENT: Head: tenderness present in the left temporal area and parietal area. Left yazidi: tenderness.Photophobia present. Pupils equal, round and reactive to light. EOM intact. Mouth within normal limitsupon inspection. Voice within normal limits. No swelling of head. No nasal injury noted. No dentalinjury noted. Mucous membranes are pink.RESPIRATORY: Respirations not labored.CVS: Capillary refill less than 2 seconds.EXTREMITIES: Left shoulder: tenderness located in the posterior aspect of the shoulder. 3 Clinical Report - Nurses [facility] Emergency Department [address] [place] [address], [place] [address] Phone #: [phone]- [phone] 03/23/2021 08:37 Patient: MONTSERRAT VIERA Sex: F [...] the patient feels better. --11:32 03/23/21 Antoinette aPrkinson RN 10:27 03/23/2021 Zofran ODT PO Response: [...] Patient verbalized understanding. Written instructions provided in Bahamian. The patient was discharged home and accompanied by alumni relations officer. She left ambulatory and via private vehicle. Nursing Program Coordinator driving. --11:30 03/23/21 Antoinette Parkinson RN 4 Clinical Report - Nurses [facility] Emergency Department [address] [place] [address] Phone #: ext- [phone] 03/23/2021 08:37 Patient: MONTSERRAT VIERA Sex: F : 1995 Age: 25y 11:28 03/23/21. BP: 101/52. MAP: 68. HR: 52. RR: 14. O2 saturation: 100%. Temp: 98.6 F. Pain level now: 0/10. --11:30 03/23/21 Antoinette Parkinson RN.Locked/Released at 03/23/2021 11:32 by Antoinette Parkinson RN Name Value Range Interpretation Code Description Data Rocio rce(s) Supporting Document(s) ID Date Data Source [id number] 03/23/2021 08:38:00 AM EDT [facility] 1 Clinical Report - Physicians/Mid Levels [facility] Emergency Department [address] [place] [address] Phone #: ext- [phone] 03/23/2021 08:37 Patient: [...] abrasion, 2 Clinical Report - Physicians/Mid Levels [facility] Emergency Department [address] [place] [address] Phone #: ext- [phone] 03/23/2021 08:37 Patient: MONTSERRAT VIERA [facility]#: [id number] Sex: F : 1995 Age: 25y ecchymosis, puncture wound or foreign body. No deformity. Left yazidi: mild tenderness of the anterior aspect of the left yazidi. No erythema, swelling, laceration, abrasion or ecchymosis. [...] 1 3 Clinical Report - Physicians/Mid Levels [facility] Emergency Department [address] [place] [address] Phone #: ext- [phone] 03/23/2021 08:37 Patient: MONTSERRAT VIERA Sex: F : 1995 Age: 25y week). Your Current Medications: . No home medication. Prescription Medications: ondansetron 4 mg disintegrating tablet Take 1 tablet three times a day as needed for 5 days -- for nausea and vomiting. Dispense 15 tablet. Refills: 0. Substitution permitted. Pharmacy - [facility] [id number] [facility] ; [place] [address]. FaxNumber: [phone]. Follow-up: Follow up with your healthcare provider unit provider and follow concussion protocol today. Summary of care provided to patient via paper.(Electronically signed by Neha Damian 03/24/2021 01:52) Name Value Range Interpretation Code Description Data Rocio rce(s) Supporting Document(s) ID Date Data Source [id number] 02/12/2021 09:46:00 AM EDT [facility] Name Value Range Interpretation Code Description Data Rocio rce(s) Supporting Document(s) SARS coronavirus 2 RNA Not Detected [facility] This lab was ordered by [facility] and reported by [facility]. Procedure Social History No Information
[2021-05-23] MEDS ORDERED: HOME MED LIST COMPLETE! XX SCH (06:30)
[2021-05-23 06:32] VITALS: BP 143/84
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
--- NOTE | 2021-05-24 06:42 | HPEPDOC ---
General Date of Admission May 23, 2021 at 04:45 Date of Service: May 24, 2021 Chief Complaint The patient is a 25-year-old female admitted with a reason for visit of Unspecified Depressive Disorder. 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 She is being medically examined here today. During admission on 05/23/2021 routine Covid test was found to be positive. Patient is full vaccine. Patient does not have any symptoms of viral infection. Denies any cough cold congestion shortness of breath diarrhea vomiting nausea etc. Home Medications No Active Prescriptions or Reported Meds Allergies Coded Allergies: No Known Allergies (Unverified , 05/10/21) Past Medical History Medical History MDD, PTSD, Anxiety, Concussion in mar 2021 when she had fallen during work Family History Significant Family History: No pertinent family hx (Discussed with patient) Social History * Smoker: Denies Alcohol: Denies Drugs: denies A-FIB/CHADSVASC A-FIB History Current/History of A-Fib/PAF?: No Review of Systems Constitutional: Denies: Chills, Fever, Night Sweats Eyes: Denies: Pain, Vision change ENT: Denies: Head Aches, Ear Pain, Dysphagia Skin: Denies: Rash, Lesions, Breakdown Pulmonary: Denies: Dyspnea, Cough Cardiovascular: Denies: Chest Pain, Palpitations, Orthopnea, Paroxysmal Noc. Dyspnea, Lt Headedness Gastrointestinal: Denies: Nausea, Vomiting, Abdominal Pain, Diarrhea Hematologic: Denies: Bruising, Bleeding Excessively Physical Examination General Exam: Positive: Alert, Cooperative, No Acute Distress Eye Exam: Positive: PERRLA, Conjunctiva & lids normal, EOMI; Negative: Sclera icteric ENT Exam: Positive: Atraumatic, Mucous membr. 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 She has been medically examined here today. COVID-19 infection As symptomatic Depression As per psychiatry No acute medical issues at this time Plan / VTE VTE Prophylaxis Ordered?: No (Freely ambulatory) Hawa Glover MD May 24, 2021 06:41
[2021-05-24 06:43] VITALS: BP 107/61
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
[2021-05-24 16:36] VITALS: BP 120/70
[2021-05-25 06:32] VITALS: BP 126/78
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
== END 2021-05-25 11:38 | disposition home or self-care (01) | DRG 881 ==
LOC: M ED 22:54 → CANBEDREQ 05-23 02:37 → M ED INP 05-23 04:45 → M PSY 05-23 05:39
PROVIDERS: ADMIT Psychiatry & Neurology Psychiatry; ATTEND Psychiatry & Neurology Psychiatry
DX: F32.9 Major depressive disorder, single episode, unspecified (principal); R45.851 Suicidal ideations; F41.1 Generalized anxiety disorder; F41.0 Panic disorder [episodic paroxysmal anxiety]; F43.10 Post-traumatic stress disorder, unspecified

== ENCOUNTER 2022-03-04 10:41 | Outpatient (CLI) | payer OTHER ==
[~2022-03-04] VITALS: Ht 160 cm; Wt 80.8 kg
[2022-03-04] MEDS ORDERED: PRENTAB9 PO (10:54)
[2022-03-04] MEDS ORDERED: HOME MED LIST COMPLETE! XX SCH (10:55)
[2022-03-04 11:00] VITALS: BP 121/82
== END 2022-03-04 12:43 | disposition home or self-care (01) ==
LOC: M LDO 10:41
PROVIDERS: ATTEND Obstetrics & Gynecology
DX: O26.893 Other specified pregnancy related conditions, third trimester (principal); N89.8 Other specified noninflammatory disorders of vagina; Z3A.30 30 weeks gestation of pregnancy
CPT/HCPCS: 59025; 76815; G0463

== ENCOUNTER 2022-05-06 10:38 | Inpatient (IN) | payer OTHER, SELFPAY ==
[~2022-05-06] VITALS: Ht 160 cm; Wt 86.7 kg
[2022-05-06] VITALS (18 sets, daily range): BP systolic 114–185; BP diastolic 56–105
[~2022-05-06 10:38] MED LIST: PRENTAB9 PO
[2022-05-06] MEDS ORDERED: OXYTOCIN DRIP 30 UNITS in IV 1 EA IV PRN ×6 (10:55)
[2022-05-06] MEDS ORDERED: CARBOPROST TROMETHAMINE 250 MCG/ML AMP IM PRN (10:55)
[2022-05-06] MEDS ORDERED: LIDOCAINE 1% MDV 20ML VIAL INFIL PRN (10:55)
[2022-05-06] MEDS ORDERED: LR 1,000 ML IV SCH (10:55)
[2022-05-06] MEDS ORDERED: TRANEXAMIC ACID INJection 1,000 MG in NS 100 ML IV PRN (10:55)
[2022-05-06] MEDS ORDERED: OXYTOCIN INJ 10 UNITS/ML VIAL (J2590) IV PRN (10:55)
[2022-05-06] MEDS ORDERED: OXYTOCIN INJ 10 UNITS/ML VIAL (J2590) IM PRN (10:55)
[2022-05-06] MEDS ORDERED: METHYLERGONOVINE MALEATE 0.2 MG/ML VIAL (J2210) IM PRN (10:55)
[2022-05-06] MEDS ORDERED: HOME MED LIST COMPLETE! XX SCH (11:00)
[2022-05-06 11:13] LABS: BASO % 0.2 % (0.0-1.0); EOS # 0.1 10^3/uL (0.0-0.5); EOS % 0.6 % (0.0-3.0); HEMATOCRIT 35.4 % (36.0-47.0); HEMOGLOBIN 11.2 g/dl (12.0-15.5); LYMPH # 2.2 10^3/uL (1.5-5.0); LYMPH % 19.2 % (24.0-44.0); MEAN CORPUSCULAR HEMOGLOBIN 25.9 pg (27.0-33.0); MEAN CORPUSCULAR HGB CONC 31.6 g/dl (32.0-36.5); MEAN CORPUSCULAR VOLUME 81.8 fl (80.0-96.0); MONO # 0.6 10^3/uL (0.0-0.8); MONO % 4.9 % (2.0-8.0); NEUTROPHILS # 8.5 10^3/uL (1.5-8.5); NEUTROPHILS % 74.3 % (36.0-66.0); PLATELET COUNT, AUTOMATED 232 10^3/uL (150-450); RED BLOOD COUNT 4.33 10^6/uL (4.00-5.40); WHITE BLOOD COUNT 11.4 10^3/uL (4.0-10.0)
[2022-05-06] MEDS ORDERED: OXYTOCIN 30 UNITS IN 0.9% NaCl 500ML IV BAG (J2590) As Ordered ONE (11:18)
[2022-05-06] MEDS ORDERED: diphenhydrAMINE 50MG/ML VIAL (J1200) IV PRN (11:55)
[2022-05-06] MEDS ORDERED: ePHEDrine SULFATE 25 MG/5 ML(5MG/ML) SYRINGE IVP PRN (11:55)
[2022-05-06] MEDS ORDERED: LR 500 ML IV PRN (11:55)
[2022-05-06] MEDS ORDERED: FENTANYL/ROPIVACAINE/NACL BAG 100 ML EPIDURAL SCH (11:55)
[2022-05-06] MEDS ORDERED: EPIDURAL/PCA KEYS XX PRN (11:55)
[2022-05-06] MEDS ORDERED: NALOXONE INJ 0.4MG/1ML VIAL (J2310 PER 1MG) IV PRN (11:55)
[2022-05-06] MEDS ORDERED: ONDANSETRON 4MG 2ML VIAL IV PRN (11:55)
[2022-05-06] MEDS ORDERED: IBUPROFEN 600MG TAB PO PRN (13:15)
[2022-05-06] MEDS ORDERED: DIBUCAINE 1% OINTMENT 30GM TOP PRN (13:15)
[2022-05-06] MEDS ORDERED: ANUSOL HC CREAM 30GM TOP PRN (13:15)
[2022-05-06] MEDS ORDERED: DOCUSATE SODIUM 100MG CAPSULE PO PRN (13:15)
[2022-05-06] MEDS ORDERED: IBUPROFEN 800 MG TAB PO PRN (13:15)
[2022-05-06] MEDS ORDERED: ACETAMINOPHEN 500 MG TAB PO PRN (13:15)
[2022-05-06] MEDS ORDERED: ACETAMINOPHEN TAB 650MG DOSE (2X325MG) PO PRN (13:15)
[2022-05-06] MEDS ORDERED: METHYLERGONOVINE MALEATE 0.2 MG TAB PO PRN (13:15)
[2022-05-07 06:00] VITALS: BP 124/76
[2022-05-07] MEDS: PRENATAL VITAMINS CHEWABLE TABLET PO SCH (07:44)
[2022-05-07 17:54] VITALS: BP 114/67
[2022-05-08 06:00] VITALS: BP 118/70
[2022-05-08] MEDS ORDERED: MEASLES,MUMPS,RUBELLA VACCINE INJ (MMR-II) (90707) SC.IMMUN ONE (09:00)
[2022-05-08] MEDS ORDERED: INFLUENZA QUADRIVALENT PF VACCINE 0.5ML SYRINGE IM.IMMUN ONE (09:00)
[2022-05-08] MEDS: PRENATAL VITAMINS CHEWABLE TABLET PO SCH (09:20)
== END 2022-05-08 13:30 | disposition home or self-care (01) | DRG 560 ==
LOC: M LDO 10:38 → M LDI 10:49 → M OBS 15:04
PROVIDERS: ADMIT Advanced Practice Midwife; ATTEND Advanced Practice Midwife
PROC: 10E0XZZ Delivery of Products of Conception, External Approach (ICD-10-PCS; principal; 2022-05-06)
DX: O80 Encounter for full-term uncomplicated delivery (principal); Z37.0 Single live birth; Z3A.39 39 weeks gestation of pregnancy